=== PATIENT | male | born 2005 | race Two or more races ===

== ENCOUNTER → 2024-12-12 | Outpatient (CLI) | payer MEDICAID, SELFPAY ==
--- NOTE | 2024-12-12 10:30 | XR_ITS ---
Examination: Abdomen sonogram, Limited Date and time of exam: December 12, 2024 at 1050 hours INDICATIONS: History gallbladder polyp beginning 4 months ago with history right upper abdominal pain Technique: Real-time redmond scale transabdominal sonographic images of the upper abdomen obtained. Findings: 5 mm gallbladder polyp No gallstones Gallbladder wall 0.3 cm no edema Common bile duct 0.2 cm Pancreatic head 2.0 cm Liver 14.3 cm smooth contour fatty infiltration no focal liver lesions Normal hepatopedal portal venous flow Patent IVC IMPRESSION: 5 mm gallbladder polyp Negative for cholelithiasis, negative for cholecystitis
== END | disposition home or self-care (01) ==
PROVIDERS: PCP Surgery; Referring Provider Surgery; Visit Provider Surgery
DX: K82.4 Cholesterolosis of gallbladder (principal)
CPT/HCPCS: 76705